=== PATIENT | female | born 1950 | race Caucasian/White ===

== ENCOUNTER 2022-05-14 12:23 | Day surgery (SDC) | payer BC ==
[~2022-05-14] VITALS: Ht 172.7 cm; Wt 67.5 kg
[~2022-05-14 12:23] MED LIST: HYDACE5 PO; HYDACE5325 PO; LEVSOD25; NAPR500 PO
[2022-05-14] MEDS ORDERED: ERGO400 (12:34)
--- NOTE | 2022-05-14 12:36 | NUR ---
05/14/22 1236 Lissy Riley PT TOOK SUTAB FOR COLON PREP.
== END 2022-05-14 14:08 | disposition home or self-care (01) ==
LOC: ORSCSDS 12:23
PROVIDERS: Surgery
PROC: 0DBL8ZX Excision of Transverse Colon, Via Natural or Artificial Opening Endoscopic, Diagnostic (ICD-10-PCS; principal; 2022-05-14 13:30)
PROC: 0DBN8ZX Excision of Sigmoid Colon, Via Natural or Artificial Opening Endoscopic, Diagnostic (ICD-10-PCS; principal; 2022-05-14 13:30)
DX: Z12.11 Encounter for screening for malignant neoplasm of colon (principal); D12.3 Benign neoplasm of transverse colon; D12.5 Benign neoplasm of sigmoid colon; E03.9 Hypothyroidism, unspecified; K57.30 Diverticulosis of large intestine without perforation or abscess without bleeding; Z79.899 Other long term (current) drug therapy
CPT/HCPCS: 88305; J2704; J7120